=== PATIENT | male | born 1975 | race Two or more races ===

== ENCOUNTER 2020-10-24 | Emergency (ER) | payer SELFPAY ==
[~2020-10-24] VITALS: Ht 175.3 cm; Wt 93.2 kg
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
[2020-10-24 01:01] VITALS: BP 144/79
--- NOTE | 2020-10-24 05:08 | RAD ---
PA chest with left rib series: Reason for examination: Shoulder pain. The heart size is upper normal. Mediastinum is unremarkable. There is poor inspiratory effort but reggie g sanchse are clear. No acute bony abnormality seen in the thorax. 2 views of the left ribs show no fractures. The bone density is normal. IMPRESSION: No acute cardiopulmonary disease. No left rib abnormalities evident. Left shoulder 3 views: No acute fracture or dislocation is evident at the left shoulder. There is however chronic bony remod eling at the humeral head which may be related to previous or chronic trauma. There does appear to be some narrowing of the glenohumeral joint. There is also some bony changes on the undersurface of the acromium with narrowing of the acromiohumeral joint space. IMPRESSION: No acute fracture or dislocation. Chronic bony changes at the shoulder with remodeling of the humeral head possibly related to previous trauma as well as hypertrophic changes off the undersurface of the acromium with narrowing of the ac romiohumeral joint space. Electronically signed by: Samantha Fleming MD (10/24/2020 5:06 AM) [facility]
== END 2020-10-24 01:05 | disposition home or self-care (01) ==
LOC: ER
DX: S00.83XA Contusion of other part of head, initial encounter (principal); S40.012A Contusion of left shoulder, initial encounter; R07.81 Pleurodynia; Y04.2XXA Assault by strike against or bumped into by another person, initial encounter; Y93.89 Activity, other specified; Y92.89 Other specified places as the place of occurrence of the external cause; Y99.8 Other external cause status
CPT/HCPCS: 71101; 73030; 99284